=== PATIENT | male | born 1990 | race Two or more races ===

== ENCOUNTER 2020-12-06 19:21 | Emergency (ER) | payer MEDICAID ==
[~2020-12-06] VITALS: Ht 165.1 cm; Wt 69.1 kg
[2020-12-06 21:05] VITALS: BP 119/65
== END 2020-12-06 22:00 | disposition home or self-care (01) ==
LOC: EMS 19:23
DX: S93.421A Sprain of deltoid ligament of right ankle, initial encounter (principal); X50.1XXA Overexertion from prolonged static or awkward postures, initial encounter; Y93.89 Activity, other specified; Y92.89 Other specified places as the place of occurrence of the external cause; Y99.8 Other external cause status
CPT/HCPCS: 99283

== ENCOUNTER 2020-12-28 12:06 | Emergency (ER) | payer MEDICAID ==
[~2020-12-28] VITALS: Ht 165.1 cm; Wt 70.5 kg
[2020-12-28 12:09] VITALS: BP 140/76
[2020-12-28 14:02] LABS: COVID AG,FIA SOURCE NASOPHARYNGEAL
[2020-12-28 14:35] LABS: RAPID GROUP A STREP NEGATIVE (NEGATIVE)
== END 2020-12-28 15:00 | disposition home or self-care (01) ==
LOC: EMS 12:07
DX: J02.9 Acute pharyngitis, unspecified (principal); R05 Cough; M79.10 Myalgia, unspecified site; F17.210 Nicotine dependence, cigarettes, uncomplicated; Z20.822 Contact with and (suspected) exposure to COVID-19
CPT/HCPCS: 71045; 87430; 99284

== ENCOUNTER 2021-02-20 15:46 | Emergency (ER) | payer MEDICAID ==
[~2021-02-20] VITALS: Ht 165.1 cm; Wt 71.8 kg
[2021-02-20 15:56] VITALS: BP 108/80
[2021-02-20 16:19] LABS: COVID AG,FIA SOURCE NASOPHARYNGEAL
== END 2021-02-20 17:21 | disposition home or self-care (01) ==
LOC: EMS 15:46
DX: R11.10 Vomiting, unspecified (principal); F17.210 Nicotine dependence, cigarettes, uncomplicated; Z20.822 Contact with and (suspected) exposure to COVID-19
CPT/HCPCS: 99283

== ENCOUNTER 2021-03-05 14:40 | Emergency (ER) | payer MEDICAID ==
[~2021-03-05] VITALS: Ht 165.1 cm; Wt 71.8 kg
[2021-03-05 17:47] VITALS: BP 110/66
== END 2021-03-05 17:49 | disposition home or self-care (01) ==
LOC: EMS 14:40
DX: S93.491A Sprain of other ligament of right ankle, initial encounter (principal); S93.601A Unspecified sprain of right foot, initial encounter; F17.210 Nicotine dependence, cigarettes, uncomplicated; X50.1XXA Overexertion from prolonged static or awkward postures, initial encounter; Y93.89 Activity, other specified; Y92.89 Other specified places as the place of occurrence of the external cause; Y99.8 Other external cause status
CPT/HCPCS: 99284; 73610-TC; 73630-TC; Z7502

== ENCOUNTER 2021-12-11 12:02 | Emergency (ER) | payer MEDICAID ==
[~2021-12-11] VITALS: Ht 165.1 cm; Wt 6.8 kg
[2021-12-11 12:39] VITALS: BP 119/64
[2021-12-11 14:01] LABS: COVID AG,FIA SOURCE NASOPHARYNGEAL
[2021-12-11 14:24] LABS: INFLUENZA TYPE A NEGATIVE FOR TYPE A (NEGATIVE); INFLUENZA TYPE B NEGATIVE FOR TYPE B (NEGATIVE)
[2021-12-11] MEDS ORDERED: OXYMETAZOLINE HCL 0.05% 15 ML NASAL SPRAY NASAL ONE (16:45)
[2021-12-11] MEDS ORDERED: AMOX1TAB16 PO (16:54)
== END 2021-12-11 17:02 | disposition home or self-care (01) ==
LOC: EMS 12:18
DX: J01.90 Acute sinusitis, unspecified (principal); Z20.822 Contact with and (suspected) exposure to COVID-19; F17.210 Nicotine dependence, cigarettes, uncomplicated
CPT/HCPCS: 87804; 99283

== ENCOUNTER 2023-07-10 15:27 | Emergency (ER) | payer MEDICAID ==
[~2023-07-10] VITALS: Ht 165.1 cm; Wt 68.2 kg
[~2023-07-10 15:27] MED LIST: AMOX1TAB16 PO
[2023-07-10 15:54] VITALS: BP 126/80; PULSE 78; RESP 18; TEMP 97.7
== END 2023-07-10 16:45 | disposition left against medical advice (07) ==
LOC: EMS 15:33
DX: M25.512 Pain in left shoulder (principal); Z53.21 Procedure and treatment not carried out due to patient leaving prior to being seen by health care provider
CPT/HCPCS: 99281; Z7502